=== PATIENT | female | born 1940 | race Caucasian/White ===

== ENCOUNTER 2016-10-16 09:20 | Day surgery (SDC) | payer MEDICARE, OTHER ==
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
[~2016-10-16 09:20] MED LIST: Lactated Ringers 1,000 ML IV SCH; Lidocaine 1%/Sod Bicarbonate in NS 8.4% 1 ML Syringe IV PRN; Sodium Chloride 0.9% 10 ML Syringe FLUSH PRN
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
[2016-10-16] MEDS ORDERED: Lidocaine 1% 4 ML ONE (10:26)
[2016-10-16] MEDS ORDERED: Propofol 200 MG/20 ML SDV ONE ×2 (10:26→11:09)
[2016-10-16] MEDS ORDERED: fentaNYL 100 MCG/2 ML SDV ONE (10:26)
[2016-10-16] MEDS ORDERED: ePHEDrine/Normal Saline 25 MG/5 ML Syringe ONE (11:09)
--- NOTE | 2016-10-16 11:19 | PCM.OPNOTE ---
- General Post-Op/Procedure Note Date of Surgery/Procedure: 10/16/16 Operative Procedure(s): Diagnostic EGD with cold forceps biopsy, Diagnostic colonoscopy with cold forceps polypectomy Pre Op Diagnosis: Abdominal bloating, change in bowel habits, diverticulitis Post-Op Diagnosis: Mild esophagitis, diverticulosis, transverse colon polyp Anesthesia Technique: MAC Primary Surgeon: Jillian Pritchard Anesthesia Provider: Reji Grant Pathology: 1. Small bowel biopsy 2. Antral biopsy 3. Distal esophageal biopsy 4. Transverse colon polyp Fluid Replacement, Intraop: 700 (mL crystalloid ) EBL in mLs: 1 Complications: None Condition: Good Free Text/Narrative:: INDICATION FOR PROCEDURE: The patient is a 76-year-old woman who was referred to me by Dr. Mei Rdz for evaluation for multiple abdominal concerns. Performing a colonoscopy and EGD and the associated risks of the procedures had been discussed with the patient. The patient found these risks acceptable and agreed to proceed. DESCRIPTION OF PROCEDURE: The patient was taken to the operating room and placed in the left lateral decubitus position. After induction of adequate sedation, a bite block was placed. A standard Olympus gastroscope was inserted into the oropharynx and guided down the esophagus without difficulty. The gastroesophageal junction was appreciated at 39 cm from the teeth. There was very mild esophagitis around the GE junction. There was no evidence of stricture or esophageal ulcerations. The scope was advanced into the stomach, and there was no obvious abnormality. The scope was passed into the proximal jejunum and the duodenum which was unremarkable. There were no petechiae or ulcerations. The proximal jejunum was grossly normal in appearance. Multiple cold forceps biopsies were obtained of the proximal jejunum and duodenum. The scope was withdrawn into the antrum, and additional cold forceps biopsies were obtained. The remainder of the gastric body was examined, and there were no additional findings. The scope was retroflexed, and there question of a small sliding hiatal hernia. The scope was straightened and withdrawn to the GE junction. Additional cold forceps biopsies were obtained of the distal esophagus. The scope was withdrawn through the remainder of the esophagus and no further abnormalities were noted. The posterior oropharynx was grossly normal in appearance. The scope was fully withdrawn and attention was then turned to the colonoscopy. A digital rectal exam was performed which was unremarkable. A pediatric Olympus colonoscope was inserted into the rectum and guided under direct visualization to the appendiceal orifice and ileocecal valve. The scope was then slowly withdrawn through the colon. The quality of the prep was good. There was a small transverse colon polyp, it was removed using cold forceps. There was no evidence of angiodysplasias. There was severe sigmoid diverticulosis. The scope was withdrawn into the rectum and retroflexed. There was no significant prominence of the patient's internal hemorrhoids. The scope was straightened, the colon was desufflated,and the scope was withdrawn. The patient was awakened from sedation and transferred to the recovery room in stable condition having tolerated the procedure well. POSTOPERATIVE PLAN: I discussed with the patient's daughter my intraoperative findings and recommendations. The patient will follow up in approximately 7- 10 days to discuss pathology and how their symptoms are progressing. The patient is to call with any worsening of symptoms or questions prior to the appointment.
--- NOTE | 2016-10-16 11:21 | PCM48HPAN ---
Post Anesthesia Note - EVALUATION WITHIN 48HRS OF ANESTHETIC Vital Signs in Normal Range: Yes Patient Participated in Evaluation: Yes Respiratory Function Stable: Yes Airway Patent: Yes Cardiovascular Function Stable: Yes Hydration Status Stable: Yes Pain Control Satisfactory: Yes Nausea and Vomiting Control Satisfactory: Yes Mental Status Recovered: Yes
[2016-10-16 12:33] VITALS: BP 129/49
== END 2016-10-16 13:00 | disposition home or self-care (01) ==
LOC: JD.SDS 09:20
PROVIDERS: ATTEND Surgery
DX: D12.3 Benign neoplasm of transverse colon (principal); K29.50 Unspecified chronic gastritis without bleeding; K31.89 Other diseases of stomach and duodenum; Z88.1 Allergy status to other antibiotic agents; Z88.8 Allergy status to other drugs, medicaments and biological substances; Z91.030 Bee allergy status; Z79.899 Other long term (current) drug therapy; E55.9 Vitamin D deficiency, unspecified; Z90.6 Acquired absence of other parts of urinary tract; Z90.49 Acquired absence of other specified parts of digestive tract; Z98.890 Other specified postprocedural states; Z98.51 Tubal ligation status
CPT/HCPCS: 43239; 45380; 88305; J3010; J7050; J7120; 00810; J2704

== ENCOUNTER 2020-03-06 18:38 | Emergency (ER) | payer MEDICARE, OTHER ==
[2020-03-06 18:59] VITALS: BP 152/72; PULSE 85
--- NOTE | 2020-03-06 19:38 | EDM.PDOC ---
ED HPI GENERAL MEDICAL PROBLEM - General Chief Complaint: Abdominal Pain Stated Complaint: DIARRHEA TO CONSTIPATION Time Seen by Provider: 03/06/20 19:05 Source of Information: Reports: Patient History Limitations: Reports: Physical Impairment (Hard of hearing, and forgot to bring hearing aids) - History of Present Illness INITIAL COMMENTS - FREE TEXT/NARRATIVE: Ms. Pritchard is a very pleasant 80-year-old woman with a past medical history significant for diverticulitis, who now presents to the ED stating that she has had anywhere from 4 to 8 days of watery diarrhea, associated with about 3 days of lower abdominal pain radiating into her lower back. She describes the pain as sharp in character, like a gas pain. It would come and go. She did not identify any modifiers. Her watery diarrhea then became a clear slime about 3 days ago. She was concerned that this meant that she was constipated, therefore she took 2 children's laxatives, along with prunes and raisins this morning. She subsequently redeveloped explosive watery diarrhea. She denies having any blood in her stools, however, she states that her stools have been black. She denies taking any Pepto-Bismol, drinking red wine, or eating black licorice. At no time has she experienced fever, nausea, vomiting, or urinary symptoms, however, she does state that she has had a decreased oral intake. The patient states that she had similar symptoms in September 2016, when she had diverticulitis. Here in the ED, the patient's initial BP is found to be mildly elevated at 152/72, otherwise, she is hemodynamically stable, afebrile, saturating 100% on room air. Other than her gastrointestinal symptoms, the patient denies having a recent fever, chills, sore throat, ear pain, nasal or sinus congestion, cough, dyspnea, chest pain, palpitations, nausea, vomiting, constipation, urinary symptoms, recent weight gain or weight loss, recent bloody bowel movements, recent joint aches, headaches, or rashes. The patient's PCP is Dr. Christiana Maciel. Her Sap Data Architect is Dr. Riki Wise. Middle Abdomen Pain Score (Numeric/FACES): 10 - Related Data Allergies Allergy/AdvReac Type Severity Reaction Status Date / Time acetaminophen [From Tylenol] Allergy Cannot Verified 10/15/16 15:07 Remember ampicillin Allergy Cannot Verified 10/15/16 15:07 Remember gentamicin [Gentamicin] Allergy Other Verified 05/03/14 06:53 naproxen [From Aleve] Allergy Cannot Verified 10/15/16 15:07 Remember neomycin Allergy Cannot Verified 10/15/16 15:07 Remember Cgzrkfo-Ppx-Ssg Reductase Allergy Cannot Verified 10/15/16 15:07 Inhibitor Remember venom-honey bee Allergy Anaphylactic Verified 10/15/16 15:07 [bee venom (honey bee)] Shock Home Meds: Home Meds Cholecalciferol (Vitamin D3) [Vitamin D3] 5,000 units PO WEEKLY 10/15/16 [History] L.acidoph,Paracasei, B.lactis [Probiotic] 1 cap PO DAILY 10/15/16 [History] Levothyroxine Sodium [Synthroid] 25 mcg PO DAILY 10/15/16 [History] Metoprolol Succinate [Toprol Xl] 25 mg PO DAILY 10/15/16 [History] Levofloxacin 1 tab PO QPM #7 tablet 03/06/20 [Rx] Levothyroxine Sodium [Synthroid] 1 tab PO DAILY #7 tablet 03/06/20 [Rx] metroNIDAZOLE [Metronidazole] 1 tab PO Q8H #21 tablet 03/06/20 [Rx] Past Medical History HEENT History: Reports: Hard of Hearing (wears hearing aids) Cardiovascular History: Reports: Cardiomyopathy, Heart Murmur (mitral valve r egurgitation) Gastrointestinal History: Reports: Diverticulosis (diverticulitis) Genitourinary History: Reports: Renal 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: Other (See Below) (ovarian cysts) Endocrine/Metabolic History: Reports: Hypothyroidism, Vitamin D Deficiency - Past Surgical History HEENT Surgical History: Reports: Adenoidectomy, Oral Surgery (wisdom teeth extraction), Tonsillectomy GI Surgical History: Reports: Appendectomy, Colonoscopy Female Surgical History: Reports: Tubal Ligation, Other (See Below) (Ovarian cystectomy x 3) Social & Family History - Tobacco Use Smoking Status *Q: Never Smoker - Caffeine Use Caffeine Use: Reports: Soda, Tea - Alcohol Use Alcohol Use History: Yes Alcohol Use Frequency: Rarely - Recreational Drug Use Recreational Drug Use: No - Living Situation & Occupation Living situation: Reports: , with Significant Other Occupation: Retired ED ROS GENERAL - Review of Systems Review Of Systems: Comprehensive ROS is negative, except as noted in HPI. ED EXAM, GI/ABD - Physical Exam Exam: See Below Exam Limited By: No Limitations General Appearance: Alert, WD/WN, No Apparent Distress Eyes: Bilateral: Normal Appearance, EOMI Ears: Normal External Exam, Hearing Loss Nose: Normal Inspection Throat/Mouth: Normal Inspection, Normal Lips, Normal Voice, No Airway Compromise Head: Atraumatic, Normocephalic Neck: Normal Inspection, Full Range of Motion Respiratory/Chest: No Respiratory Distress, Lungs Clear, Normal Breath Sounds, No Accessory Muscle Use Cardiovascular: Normal Peripheral Pulses, Regular Rate, Rhythm, No Edema, No Gallop, No JVD, No Murmur, No Rub GI/Abdominal Exam: Normal Bowel Sounds, Soft, Non-Tender (including the lower abdomen), No Organomegaly, No Distention, No Abnormal Bruit, No Mass (Female) Exam: Deferred Rectal (Female) Exam: Normal Exam, Normal Rectal Tone, Heme - Stool (brown, not black), Tenderness (to palpation of the anterior rectum, only). No: Hemorrhoids, Mass Back Exam: Normal Inspection, Full Range of Motion, NT Extremities: Normal Inspection, Normal Range of Motion, No Pedal Edema, Normal Capillary Refill Neurological: Alert, Oriented, Normal Cognition, No Motor/Sensory Deficits Psychiatric: Normal Affect Skin Exam: Warm, Dry, Intact, Normal Color, No Rash Course - Vital Signs Last Recorded V/S: Last Vital Signs Temp 36.9 C 03/06/20 18:56 Pulse 85 03/06/20 18:56 Resp 20 03/06/20 18:56 BP 152/72 H 03/06/20 18:56 Pulse Ox 100 03/06/20 18:56 - Orders/Labs/Meds Orders: Active Orders 24 hr Category Date Time Status Sodium Chloride 0.9% [Normal Saline] 1,000 ml Med 03/06/20 19:45 Active IV ASDIRECTED Medication Orders Sodium Chloride (Normal Saline) 1,000 mls @ 125 mls/hr IV ASDIRECTED MAKENNA Last Admin: 03/06/20 19:45 Dose: 125 mls/hr Documented by: JOSE LUIS Labs: Laboratory Tests 03/06/20 03/06/20 03/06/20 Range/Units 19:35 19:35 19:45 WBC 10.63 H (3.98-10.04) K/mm3 RBC 4.84 (3.98-5.22) M/mm3 Hgb 15.4 (11.2-15.7) gm/dl Hct 46.1 H (34.1-44.9) % MCV 95.2 H (79.4-94.8) fl MCH 31.8 (25.6-32.2) pg MCHC 33.4 (32.2-35.5) g/dl RDW Std Deviation 44.3 (36.4-46.3) fL Plt Count 312 (182-369) K/mm3 MPV 9.4 (9.4-12.3) fl Neutrophils % (Manual) 82 H (40-60) % Band Neutrophils % 0 (0-10) % Lymphocytes % (Manual) 13 L (20-40) % Atypical Lymphs % 2 % Monocytes % (Manual) 3 (2-10) % Eosinophils % (Manual) 0 L (0.7-5.8) % Basophils % (Manual) 0 L (0.1-1.2) Platelet Estimate Adequate RBC Morph Comment Normal Sodium 139 (136-145) mEq/L Potassium 3.7 (3.5-5.1) mEq/L Chloride 101 (98-107) mEq/L Carbon Dioxide 27 (21-32) mEq/L Anion Gap 14.7 (5-15) BUN 7 (7-18) mg/dL Creatinine 0.9 (0.55-1.02) mg/dL Est Cr Clr Drug Dosing 42.33 mL/min Estimated GFR (MDRD) > 60 (>60) mL/min BUN/Creatinine Ratio 7.8 L (14-18) Glucose 110 (83-115) mg/dL Calcium 9.4 (8.5-10.1) mg/dL Magnesium 2.0 (1.8-2.4) mg/dl Total Bilirubin 0.7 (0.2-1.0) mg/dL AST 20 (15-37) U/L ALT 22 (14-59) U/L Alkaline Phosphatase 74 (46-116) U/L Total Protein 7.7 (6.4-8.2) g/dl Albumin 3.6 (3.4-5.0) g/dl Globulin 4.1 gm/dL Albumin/Globulin Ratio 0.9 L (1-2) Urine Color Yellow (Yellow) Urine Appearance Clear (Clear) Urine pH 6.5 (5.0-8.0) Ur Specific [place] 1.015 (1.005-1.030) Urine Protein Negative (Negative) Urine Glucose (UA) Negative (Negative) Urine Ketones 1+ H (Negative) Urine Occult Blood 2+ H (Negative) Urine Nitrite Negative (Negative) Urine Bilirubin Negative (Negative) Urine Urobilinogen 0.2 (0.2-1.0) Ur Leukocyte Esterase Negative (Negative) Urine RBC 5-10 H (0-5) /hpf Urine WBC 0-5 (0-5) /hpf Ur Squamous Epith Cells Not seen (0-5) /hpf Urine Bacteria Few (FEW) /hpf Urine Mucus Not seen (FEW) /hpf COVID-19 (JOHN) (NEGATIVE) 03/06/20 Range/Units 21:00 WBC (3.98-10.04) K/mm3 RBC (3.98-5.22) M/mm3 Hgb (11.2-15.7) gm/dl Hct (34.1-44.9) % MCV (79.4-94.8) fl MCH (25.6-32.2) pg MCHC (32.2-35.5) g/dl RDW Std Deviation (36.4-46.3) fL Plt Count (182-369) K/mm3 MPV (9.4-12.3) fl Neutrophils % (Manual) (40-60) % Band Neutrophils % (0-10) % Lymphocytes % (Manual) (20-40) % Atypical Lymphs % % Monocytes % (Manual) (2-10) % Eosinophils % (Manual) (0.7-5.8) % Basophils % (Manual) (0.1-1.2) Platelet Estimate RBC Morph Comment Sodium (136-145) mEq/L Potassium (3.5-5.1) mEq/L Chloride (98-107) mEq/L Carbon Dioxide (21-32) mEq/L Anion Gap (5-15) BUN (7-18) mg/dL Creatinine (0.55-1.02) mg/dL Est Cr Clr Drug Dosing mL/min Estimated GFR (MDRD) (>60) mL/min BUN/Creatinine Ratio (14-18) Glucose (83-115) mg/dL Calcium (8.5-10.1) mg/dL Magnesium (1.8-2.4) mg/dl Total Bilirubin (0.2-1.0) mg/dL AST (15-37) U/L ALT (14-59) U/L Alkaline Phosphatase (46-116) U/L Total Protein (6.4-8.2) g/dl Albumin (3.4-5.0) g/dl Globulin gm/dL Albumin/Globulin Ratio (1-2) Urine Color (Yellow) Urine Appearance (Clear) Urine pH (5.0-8.0) Ur Specific [place] (1.005-1.030) Urine Protein (Negative) Urine Glucose (UA) (Negative) Urine Ketones (Negative) Urine Occult Blood (Negative) Urine Nitrite (Negative) Urine Bilirubin (Negative) Urine Urobilinogen (0.2-1.0) Ur Leukocyte Esterase (Negative) Urine RBC (0-5) /hpf Urine WBC (0-5) /hpf Ur Squamous Epith Cells (0-5) /hpf Urine Bacteria (FEW) /hpf Urine Mucus (FEW) /hpf COVID-19 (JOHN) Negative (NEGATIVE) Meds: Medications Generic Name Dose Route Start Last Admin Trade Name Freq PRN Reason Stop Dose Admin Sodium Chloride 1,000 mls @ 125 mls/hr 03/06/20 19:45 03/06/20 19:45 Normal Saline IV 125 mls/hr ASDIRECTED MAKENNA Administration Discontinued Medications Generic Name Dose Route Start Last Admin Trade Name Freq PRN Reason Stop Dose Admin Hydromorphone HCl 0.5 mg 03/06/20 20:58 03/06/20 21:04 Dilaudid IVPUSH 03/06/20 20:59 0.5 mg ONETIME ONE Administration Levofloxacin 750 mg 03/06/20 21:40 Levaquin PO 03/06/20 21:41 ONETIME STA Metronidazole 500 mg 03/06/20 21:40 Flagyl PO 03/06/20 21:41 ONETIME STA Ondansetron HCl 4 mg 03/06/20 20:58 03/06/20 21:04 Zofran IVPUSH 03/06/20 20:59 4 mg ONETIME ONE Administration - Re-Assessments/Exams Free Text/Narrative Re-Assessment/Exam: 03/06/20 19:33 As above, the patient has had anywhere from 4 to 8 days of watery diarrhea that became a clear slime about 3 days ago, with redevelopment of watery diarrhea after taking 2 laxatives, prunes, and raisins today. No nausea or vomiting, and no fever. She reports having black stools, but on rectal exam, her stool is light brown in color and Hemoccult negative. Of note, however, she had considerable tenderness to palpation of her anterior rectum on the rectal exam, although she had no tenderness to palpation of her abdomen. I have ordered a work-up that includes blood work, a urinalysis by quick catheter (patient does not feel that she can provide an adequate clean-catch), and a CT of her abdomen and pelvis with oral and IV contrast. In the meantime, the patient will be given IV fluid. She declined an offer for pain medication, and denies having nausea at this time. 03/06/20 20:58 Notified by Kamila RUFFIN that the patient is requesting some pain medication. She just returned from CT scan. I have ordered IV Dilaudid and IV Zofran. 03/06/20 21:34 The patient's CBC is remarkable for WBC count slightly elevated at 10.63, but with 0% bandemia. Her Hct is elevated at 46.1, but with a Hgb normal at 15.4, and the remainder of her CBC being unremarkable. Her CMP is unremarkable. Her magnesium level is within normal limits at 2.0. Her urinalysis was remarkable for 2+ occult blood with 5-10 RBCs, leukocyte esterase negative with 0-5 WBCs, and nitrate negative with few bacteria. Her test for the SARS-CoV-[address] of the abdomen and pelvis with oral and IV contrast is read by Dr. Knight as: 1. Diverticuli within the sigmoid colon with mild inflammatory change which is felt compatible with mild diverticulitis. 2. Other findings as noted above believed to be nonacute. Based on the above, I will start the patient on both oral levofloxacin and metronidazole. She may then be discharged home. 03/06/20 22:11 Test results discussed with the patient. I will discharge her home with prescriptions for both levofloxacin and metronidazole to complete a 7-day course. We discussed diet, and the need to follow-up to arrange for a colonoscopy in about 6 weeks. The patient would like to be referred to Alisha Leon NP. 03/06/20 22:22 Notified by Lorie RUFFIN that the patient requested a refill of Synthroid. I have submitted a 7-day refill. Departure - Departure Time of Disposition: 22:12 Disposition: Home, Self-Care 01 Condition: Good Clinical Impression: Acute diverticulitis - Discharge Information *PRESCRIPTION DRUG MONITORING PROGRAM REVIEWED*: Not Applicable *COPY OF PRESCRIPTION DRUG MONITORING REPORT IN PATIENT STEFAN: Not Applicable Referrals: Riki Wise DO [Ordering Only Provider] - Alisha Leon NP [Nurse Practitioner] - Forms: ED Department Discharge Additional Instructions: You were seen in the emergency room after experiencing several days of watery diarrhea with lower abdominal pain. Work-up in the ER included blood work, a urinalysis, a CT of your abdomen and pelvis with oral and IV contrast, and a test for the SARS-CoV-2 virus. Your work-up found that you are suffering from mild diverticulitis = an infection of your descending colon. The remainder of your work-up was unremarkable. You have been darted on the antibiotics metronidazole (Flagyl) and levofloxacin (Levaquin), and prescriptions for metronidazole and levofloxacin have been sent to the [facility] located in the [employer] [facility] store. Take 1 tablet of metronidazole every 8 hours, starting tomorrow morning, 03/07/2020, as prescribed. Take 1 tablet of levofloxacin every evening, starting tomorrow evening, 03/07/2020, as prescribed. Finish both prescriptions, even though you will likely be feeling much better within the next few days. Stay adequately hydrated. It does not really matter what type of fluid you drink. We recommend that you eat a low fiber/low residue diet for the next few days, until you are feeling better, after which you should resume your usual diet. In the long-term, we recommend that you eat a high-fiber diet. As discussed, it is a myth you should avoid popcorn/seeds/nuts with diverticular disease. In fact, once you are feeling better, we actually recommend that you eat these, as they have been shown to lower the incidence of diverticulitis in patients with diverticular disease. Please follow-up with Alisha Leon NP, at the next available appointment, to arrange for a colonoscopy in about 6 weeks. If any other problems, please do not hesitate to return to the ER. *A 1 week refill prescription for Synthroid has also been sent to the [facility].* Sepsis Event Note (ED) - Evaluation Sepsis Screening Result: No Definite Risk - Focused Exam Vital Signs: Vital Signs Temp Pulse Resp BP Pulse Ox 03/06/20 18:56 36.9 C 85 20 152/72 H 100 - My Orders Last 24 Hours: My Active Orders 03/06/20 19:45 Sodium Chloride 0.9% [Normal Saline] 1,000 ml IV ASDIRECTED - Assessment/Plan Last 24 Hours: My Active Orders 03/06/20 19:45 Sodium Chloride 0.9% [Normal Saline] 1,000 ml IV ASDIRECTED
[2020-03-06] MEDS ORDERED: Sodium Chloride 0.9% 1,000 ML IV SCH (19:45)
[2020-03-06] MEDS ORDERED: Ondansetron 4 MG/2 ML SDV IVPUSH ONE (20:58)
[2020-03-06] MEDS ORDERED: HYDROmorphone 0.5 MG/0.5 ML Syringe IVPUSH ONE (20:58)
--- NOTE | 2020-03-06 21:23 | CT ---
CT abdomen and pelvis Technique: Multiple axial sections were obtained from above the dome of the diaphragm inferiorly through the pubic symphysis. Intravenous contrast and oral contrast is seen. Delayed images were obtained through the bladder. Reconstructed coronal and sagittal images were obtained. Comparison: No prior CT abdomen or pelvis exam is available, prior abdominal x-ray of 07/29/12 is available. Slight inflammatory change is seen around the sigmoid colon. Diverticuli are seen within the sigmoid colon. Findings are felt compatible with a mild diverticulitis. Visualized lung bases show nothing acute. Liver contains no focal abnormality. Moderate sized hiatal hernia is seen. Spleen appears within normal limits. Adrenal glands show no nodule. Kidneys show symmetric contrast enhancement. Small cyst is noted within the mid to upper right kidney. Pancreas shows no discrete abnormality. Aorta shows no aneurysm with atherosclerotic calcification. No retroperitoneal adenopathy or mesenteric abnormalities are appreciated. Appendix not visualized with certainty. 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 These appear to join distally at the UVJ. No ureteral dilatation is seen. Contrast is also noted within the single right ureter. Contrast is noted within the bladder. Impression: 1. Diverticuli within the sigmoid colon with mild inflammatory change which is felt compatible with mild diverticulitis. 2. Other findings as noted above believed to be nonacute. Diagnostic code #3 This report was dictated in MDT
[2020-03-06] MEDS ORDERED: metroNIDAZOLE 500 MG Tab PO STA (21:40)
[2020-03-06] MEDS ORDERED: Levofloxacin 750 MG Tab PO STA (21:40)
== END 2020-03-06 22:38 | disposition home or self-care (01) ==
LOC: JD.ED 18:38
DX: K57.92 Diverticulitis of intestine, part unspecified, without perforation or abscess without bleeding (principal); I42.9 Cardiomyopathy, unspecified; E03.9 Hypothyroidism, unspecified; Z88.1 Allergy status to other antibiotic agents; Z88.6 Allergy status to analgesic agent; Z88.8 Allergy status to other drugs, medicaments and biological substances; Z91.030 Bee allergy status; Z79.899 Other long term (current) drug therapy; Z20.828 Contact with and (suspected) exposure to other viral communicable diseases
CPT/HCPCS: 36415; 74177; 80053; 81001; 83735; 85007; 85027; 96361; 96374; 96375; 99284; A9270; J1170; J2405; J7030; U0002

== ENCOUNTER 2021-03-26 13:18 | Emergency (ER) | payer MEDICARE, OTHER ==
[2021-03-26] MEDS ORDERED: Sodium Chloride 0.9% 10 ML Syringe FLUSH PRN (14:10)
--- NOTE | 2021-03-26 14:57 | CR ---
Chest: Portable view of the chest was obtained. Comparison: No prior chest x-ray, prior chest CT of 06/12/09. Heart is slightly enlarged. Upper mediastinum is normal. Lungs are clear with no acute parenchymal change. Bony structures show nothing acute. Impression: 1. Slight cardiomegaly. 2. Nothing acute is seen on portable chest x-ray. Diagnostic code #2
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
[2021-03-26] MEDS ORDERED: diphenhydrAMINE 50 MG/ML SDV IVPUSH PRN (16:40)
[2021-03-26] MEDS ORDERED: Bamlanivimab 700 MG, ETESEVIMAB 1,400 MG in Sodium Chloride 0.9% 100 ML IV ONE (16:40)
[2021-03-26] MEDS ORDERED: methylPREDNISolone Sodium Succinate 125 MG/2 ML SDV IVPUSH PRN (16:40)
[2021-03-26] MEDS ORDERED: Famotidine 20 MG/2 ML SDV IVPUSH PRN (16:40)
[2021-03-26] MEDS ORDERED: EPINEPHrine 1 MG/ML SDV IM PRN (16:40)
[2021-03-26] MEDS ORDERED: Sodium Chloride 0.9% 10 ML Syringe FLUSH SCH (16:45)
[2021-03-26] MEDS ORDERED: Ibuprofen 600 MG Tab PO ONE (18:32)
[2021-03-26] MEDS ORDERED: Aspirin 81 MG Tab.Chew PO ONE (18:43)
[2021-03-26] MEDS ORDERED: Carvedilol 3.125 MG Tab PO ONE (18:55)
[2021-03-26] MEDS ORDERED: Heparin Sodium 5,000 Units/ML Vial IVPUSH ONE (18:56)
[2021-03-26] MEDS ORDERED: Heparin Sodium/D5W 25,000 UNITS/500 ML BAG IV SCH (19:00)
[2021-03-26 19:22] VITALS: BP 133/55; PULSE 92
[2021-03-26] MEDS ORDERED: Iopamidol 755 Mg/ML 100 ML Bottle IVPUSH ONE (19:23)
[2021-03-26] MEDS ORDERED: Sodium Chloride 0.9% 10 ML SDV FLUSH ONE (19:23)
[2021-03-26] MEDS ORDERED: Sodium Chloride 0.9% 100 ML IV SCH (19:30)
--- NOTE | 2021-03-26 19:38 | CT ---
CT chest Technique: Multiple axial sections were obtained from above the lung apices inferiorly through the lung bases. Intravenous contrast was utilized. Study has been performed as a pulmonary angiogram protocol. Comparison: Prior chest x-ray of 03/26/21. Findings: Pulmonary arteries are well opacified. No filling defects are seen to indicate pulmonary embolism. Thoracic aorta shows mild atherosclerotic change with no aneurysm. Minimal coronary artery calcification is seen. Mediastinum shows no adenopathy. No pericardial thickening is seen. Heart is enlarged. Small hiatal hernia is noted. Other visualized upper abdominal structures show nothing acute. Bilateral breast prostheses are noted. Lung window settings were reviewed. No acute parenchymal process is seen. No pleural effusions are seen. Bone window settings were reviewed which show mild scattered degenerative change throughout the spine. No acute osseous abnormality is appreciated. Impression: 1. Findings which are felt to be chronic as noted above. 2. Nothing is seen to indicate pulmonary embolism. Diagnostic code #2
== END 2021-03-26 20:30 ==
LOC: SUPCPDRO 13:18 → JD.ED 13:18
DX: I21.4 Non-ST elevation (NSTEMI) myocardial infarction (principal); E03.9 Hypothyroidism, unspecified; Z88.6 Allergy status to analgesic agent; Z88.1 Allergy status to other antibiotic agents; Z88.8 Allergy status to other drugs, medicaments and biological substances; Z91.030 Bee allergy status; Z79.899 Other long term (current) drug therapy
CPT/HCPCS: 36415; 71045; 71275; 80053; 81001; 83735; 84484; 85025; 85379; 85610; 85730; 86140; 93005; 96365; 99285; A9270; J1644; M0245; Q0245; Q9967